=== PATIENT | female | born 1945 | race Caucasian/White ===

== ENCOUNTER → 2016-08-28 | Outpatient (CLI) | payer MEDICARE, BC ==
[2015-12-21 15:00] VITALS: BP 123/62
[~2016-08-28] MED LIST: ASCO1TAB2 PO; CALC-128 PO; FLUT12AE IH; GLUC-117 PO; MULT-650 PO; VIT1TABL32 PO
--- NOTE | 2016-08-28 16:57 | RAD ---
CT chest without IV contrast History: Follow-up nodule. Comparison: CT chest 02/25/2016. Technique: Helical CT of the chest was performed without intravenous contrast. Axial, sagittal, and coronal reconstructions were obtained. One or more of the following individualized dose reduction techniques were utilized for the study: Automated exposure control Adjustment of mA and/or kV according to patient's size Use of iterative reconstruction technique. Findings: Thyroid is symmetric. Trachea and mainstem bronchi appear patent. No mediastinal lymphadenopathy is seen. Thoracic aorta is without evidence of aneurysm. Mild calcified aortic atherosclerosis is noted. Heart and pericardium are unremarkable. Right lower lobe soft tissue pulmonary nodule measuring 7 mm (series 3 image 177) is unchanged. The lingula demonstrates mucus impaction of multiple bronchi. There is interval resolution of previously identified right upper lobe groundglass nodules. There is interval development of a few irregular groundglass nodules in the left upper lobe measuring up to 5 mm (series 3 images 120 through 137). Impression: 1. Waxing and waning course of groundglass nodules. A few previously identified groundglass nodules have resolved while there are new left upper lobe groundglass nodules. Recommend follow-up chest CT in 3 months. 2. Right lower lobe soft tissue pulmonary nodule measuring 7 mm unchanged.
== END | disposition home or self-care (01) ==
LOC: CT 13:48
PROVIDERS: ATTEND Internal Medicine Critical Care Medicine
DX: R91.1 Solitary pulmonary nodule (principal)
CPT/HCPCS: 71250

== ENCOUNTER → 2017-02-13 | Outpatient (CLI) | payer MEDICARE, BC ==
[2015-12-21 15:00] VITALS: BP 123/62
--- NOTE | 2017-02-13 15:01 | RAD ---
Indication follow-up pulmonary nodules. Axial images of the chest were obtained and are compared to an examination 08/28/2016. No IV contrast was administered. Imaging through the upper abdomen is unremarkable. Mild pectus deformity is noted. No significant hilar or mediastinal adenopathy is seen. Scattered areas of pleural-parenchymal scarring are seen appearing similar. Areas of bronchiectasis are noted also appearing similar. Nodule in the right lower lobe is unchanged. A few small nodules in the left upper lobe also appear stable. A new finding in the chest is not seen and no acute finding is apparent IMPRESSION: Stable chest. No acute finding seen. Nodule in the right lower lobe and smaller nodules in the left upper lobe appear stable PQRS Compliance Statement: One or more of the following individualized dose reduction techniques were utilized for this examination: 1. Automated exposure control 2. Adjustment of the mA and/or kV according to patient size 3. Use of iterative reconstruction technique
== END | disposition home or self-care (01) ==
LOC: CT 11:41
PROVIDERS: ATTEND Internal Medicine Critical Care Medicine
DX: R91.8 Other nonspecific abnormal finding of lung field (principal)
CPT/HCPCS: 71250

== ENCOUNTER 2017-02-15 13:03 | Emergency (ER) | payer MEDICARE, BC ==
[2017-02-15] MEDS ORDERED: IV NORMAL SALINE 1000ML BAG 1,000 ML IV SCH (13:44)
--- NOTE | 2017-02-15 13:56 | EKG ---
[facility] [address] [place] [address] Test Date: 2017-02-15 Test Time: 13:26:43 Pat Name: ANYI KUHN Department: Room: Gender: F Delivery Consultant: : 1945 Requested By: ZAINAB LE Order Number: [id number] Reading MD: Measurements Intervals [place] Rate: 68 P: 55 AZ: 100 QRS: 60 QRSD: 76 T: 51 QT: 360 QTc: 387 Interpretive Statements SINUS RHYTHM QRS(T) CONTOUR ABNORMALITY CONSIDER ANTEROSEPTAL MYOCARDIAL DAMAGE RI6.01 Unconfirmed report No previous ECG available for comparison
[2017-02-15 13:57] LABS: BILIRUBIN,URINE NEGATIVE (NEG); GLUCOSE,URINE NEGATIVE (NEG); NITRITE,URINE NEGATIVE (NEG); PROTEIN,URINE NEGATIVE (NEG-TRACE); UROBILINOGEN,URINE 0.2 mg/dL (0.2 mg/dL)
[2017-02-15 14:04] LABS: BACTERIA,URINE 0 /HPF (0-FEW); RBC,URINE 0 /HPF (0-2); SQUAMOUS EPITHELIAL CELL,UR FEW /LPF; WBC,URINE 0 /HPF (0-4)
[2017-02-15 14:08] LABS: BASO % 1 % (0-3); EOS % 2 % (0-3); HEMATOCRIT 40.6 % (36.0-47.0); HEMOGLOBIN 13.8 g/dL (12.0-15.5); LYMPH # 0.8 x10^3/uL (1.0-4.8); LYMPH % 13 % (24-48); MEAN CORPUSCULAR HEMOGLOBIN 29 pg (25-35); MEAN CORPUSCULAR HGB CONC 34 g/dL (31-37); MEAN CORPUSCULAR VOLUME 84 fL (79-100); MONO % 6 % (0-9); NEUT % 79 % (31-73); PLATELET COUNT 144 x10^3/uL (140-400); RED BLOOD COUNT 4.85 x10^6/uL (3.50-5.40); RED CELL DISTRIBUTION WIDTH 12.9 % (11.5-14.5); WHITE BLOOD COUNT 6.6 x10^3/uL (4.0-11.0)
[2017-02-15 14:18] LABS: CALCIUM 10.1 mg/dL (8.5-10.1); CREATININE 0.9 mg/dL (0.6-1.0); GFR 61.9; POTASSIUM 4.6 mmol/L (3.5-5.1)
[2017-02-15 14:24] LABS: TOTAL BILIRUBIN 0.5 mg/dL (0.2-1.0); TOTAL PROTEIN 7.9 g/dL (6.4-8.2)
--- NOTE | 2017-02-15 16:21 | PHYS DOC ---
Past Medical History Past Medical History: Asthma, COPD Past Surgical History: No Surgical History Alcohol Use: None Drug Use: None Adult General Chief Complaint Chief Complaint: WEAKNESS/GENERALIZED HPI HPI Patient is a 71 year old female brought to the ED by her daughter with the complaint of weakness. Patient states she recently had a tooth pulled and "it bled for 4 hours". She can get it to stop bleeding so she finally ended up going back to the [place] to impacted and put a stitch in and it did stop. The patient subsequently had some "spitting up" of blood, had some vomiting and coughing of blood. She spoke with Dr. Raymond who ordered a CT of her chest which was negative for pulmonary embolism. She has not had any further bleeding, but she just feels weak. She just doesn't feel like herself and feels somewhat weak. Patient is not on a blood thinner but she has been taking vitamin E because she thought it was good for her. Review of Systems Review of Systems Constitutional: Denies fever or chills [] HENT: She has sinus congestion and facial fullness Respiratory: Denies cough or shortness of breath [] Neurologic: Denies headache, focal weakness or sensory changes [] Current Medications Current Medications Current Medications Medications (Trade) Dose Ordered Sig/Jennie Start Time Stop Time Status Last Admin Dose Admin Sodium Chloride 1,000 ml @ 1,000 mls/hr Q1H 02/15/17 13:44 02/15/17 14:43 DC 02/15/17 14:07 1,000 MLS/HR Allergies Allergies Allergies Coded Allergies Type Severity Reaction Last Updated Verified clindamycin Allergy Intermediate 12/21/15 Yes sulfamethoxazole Allergy Intermediate 12/21/15 Yes trimethoprim Allergy Intermediate 12/21/15 Yes albuterol Allergy Mild 12/21/15 Yes Physical Exam Physical Exam Constitutional: Well developed, well nourished, no acute distress, non-toxic appearance. Alert, mentating normally, warm and dry. HENT: Normocephalic, atraumatic, bilateral external ears normal, oropharynx moist, no oral exudates, nose normal. The site of her dental extraction in the anterior mandible is healthy in appearance, no evidence of infection, no evidence of bleeding. Eyes: conjunctiva normal, no discharge. [] Neck: Normal range of motion, no stridor. [] Cardiovascular:Heart rate regular rhythm, no murmur [] Lungs & Thorax: Bilateral breath sounds clear to auscultation [] Abdomen: Bowel sounds normal, soft, no tenderness, no masses, no pulsatile masses. [] Skin: Warm, dry, no erythema, no rash. [] Extremities: No tenderness, no cyanosis, no clubbing, ROM intact, no edema. [] Neurologic: Alert and oriented X 3, normal motor function, no focal deficits noted. [] Current Patient Data Vital Signs Vital Signs Date Time Temp Pulse Resp B/P (MAP) Pulse Ox O2 Delivery O2 Flow Rate FiO2 02/15/17 16:35 61 18 99/50 (66) 96 Room Air 02/15/17 13:23 98.6 98.6 Lab Values Laboratory Tests Test 02/15/17 13:23 02/15/17 13:50 Urine Collection Type Unknown Urine Color Yellow Urine Clarity Clear Urine pH 6.0 Urine Specific Jefferson <=1.005 Urine Protein Negative mg/dL (NEG-TRACE) Urine Glucose (UA) Negative mg/dL (NEG) Urine Ketones (Stick) Negative mg/dL (NEG) Urine Blood Negative (NEG) Urine Nitrite Negative (NEG) Urine Bilirubin Negative (NEG) Urine Urobilinogen Dipstick 0.2 mg/dL (0.2 mg/dL) Urine Leukocyte Esterase Negative (NEG) Urine RBC 0 /HPF (0-2) Urine WBC 0 /HPF (0-4) Urine Squamous Epithelial Cells Few /LPF Urine Bacteria 0 /HPF (0-FEW) Urine Mucus Slight /LPF White Blood Count 6.6 x10^3/uL (4.0-11.0) Red Blood Count 4.85 x10^6/uL (3.50-5.40) Hemoglobin 13.8 g/dL (12.0-15.5) Hematocrit 40.6 % (36.0-47.0) Mean Corpuscular Volume 84 fL (79-100) Mean Corpuscular Hemoglobin 29 pg (25-35) Mean Corpuscular Hemoglobin Concent 34 g/dL (31-37) Red Cell Distribution Width 12.9 % (11.5-14.5) Platelet Count 144 x10^3/uL (140-400) Neutrophils (%) (Auto) 79 % (31-73) H Lymphocytes (%) (Auto) 13 % (24-48) L Monocytes (%) (Auto) 6 % (0-9) Eosinophils (%) (Auto) 2 % (0-3) Basophils (%) (Auto) 1 % (0-3) Neutrophils # (Auto) 5.2 x10^3uL (1.8-7.7) Lymphocytes # (Auto) 0.8 x10^3/uL (1.0-4.8) L Monocytes # (Auto) 0.4 x10^3/uL (0.0-1.1) Eosinophils # (Auto) 0.1 x10^3/uL (0.0-0.7) Basophils # (Auto) 0.0 x10^3/uL (0.0-0.2) Sodium Level 141 mmol/L (136-145) Potassium Level 4.6 mmol/L (3.5-5.1) Chloride Level 103 mmol/L (98-107) Carbon Dioxide Level 30 mmol/L (21-32) Anion Gap 8 (6-14) Blood Urea Nitrogen 19 mg/dL (7-20) Creatinine 0.9 mg/dL (0.6-1.0) Estimated GFR (Cockcroft-Gault) 61.9 BUN/Creatinine Ratio 21 (6-20) H Glucose Level 107 mg/dL (70-99) H Calcium Level 10.1 mg/dL (8.5-10.1) Total Bilirubin 0.5 mg/dL (0.2-1.0) Aspartate Amino Transferase (AST) 20 U/L (15-37) Alanine Aminotransferase (ALT) 28 U/L (14-59) Alkaline Phosphatase 87 U/L (46-116) Total Protein 7.9 g/dL (6.4-8.2) Albumin 4.0 g/dL (3.4-5.0) Albumin/Globulin Ratio 1.0 (1.0-1.7) Laboratory Tests 02/15/17 13:50 Laboratory Tests 02/15/17 13:50 EKG EKG [] Radiology/Procedures Radiology/Procedures [] Course & Med Decision Making Course & Med Decision Making Pertinent Labs and Imaging studies reviewed. (See chart for details) 71-year-old female with a complaint of generalized weakness after she had quite a bit of bleeding following a tooth extraction. I advised the patient we will check some labs and give her some IV fluids. She is agreeable to that plan. Labs are unremarkable.. She felt a little bit better after the liter of IV fluids. The patient feels like she might have a sinus infection. She has fullness in her sinuses and thinks she did get some blood in there when she was having the bleeding. She is already on a Z-Rivas. The patient feels comfortable with discharge. [] Dragon Disclaimer Dragon Disclaimer This electronic medical record was generated, in whole or in part, using a voice recognition dictation system. Departure Departure Impression: Primary Impression: Weakness Additional Impression: Sinusitis Disposition: HOME, SELF-CARE Condition: IMPROVED Referrals: LOLY WEST Jr, MD (PCP) Patient Instructions: Weakness, [id number] Additional Instructions: Be sure you are eating regular, healthy meals. Drink plenty of fluids. Follow- up with your dentist as planned. If not better in 3-5 days, see your primary care doctor. Problem Qualifiers ZAINAB LE MD Feb 15, 2017 16:21
[2017-02-15 16:35] VITALS: BP 99/50
== END 2017-02-15 16:38 | disposition home or self-care (01) ==
LOC: ER 13:03
DX: R53.1 Weakness (principal); J32.9 Chronic sinusitis, unspecified; K08.409 Partial loss of teeth, unspecified cause, unspecified class; J44.9 Chronic obstructive pulmonary disease, unspecified; Z88.1 Allergy status to other antibiotic agents; Z88.2 Allergy status to sulfonamides; Z88.8 Allergy status to other drugs, medicaments and biological substances
CPT/HCPCS: 36415; 80053; 81001; 85025; 93005; 96360; 99285; J7030

== ENCOUNTER → 2018-08-13 | Outpatient (CLI) | payer MEDICARE, BC ==
--- NOTE | 2018-08-13 12:47 | RAD ---
PQRS Compliance statement: One or more of the following individualized dose reduction techniques were utilized for this examination: 1. Automated exposure control. 2. Adjustment of the mA and/or kV according to patient size. 3. Use of iterative reconstruction technique. Indication:F/U LUNG NODULE PREV SENT TECHNIQUE: CT chest without IV contrast with multiplanar reformats. COMPARISON: 02/13/2017 FINDINGS: Heart is normal in size. No pericardial or pleural effusion. No axillary or mediastinal adenopathy. Evaluation of hilar lymphadenopathy is limited due to lack of IV contrast. Stable subsegmental atelectasis in the medial segment of the right middle lobe. Stable triangular opacity in the right lower lobe. Stable nodularity in the medial aspect of the right upper lobe. Stable 3 mm left lung apex nodule (series 3 image 49). Visualized noncontrast appearance of the liver, spleen, adrenals, kidneys and enteric tail within normal limits. No suspicious bony lesion. IMPRESSION: Stable bilateral lung findings dating back to January 2017. Findings likely suggests sequela of chronic or prior infection. Follow-up CT chest in 6 months recommended to document two-year stability. Electronically signed by: Jose Alberto Pickens DO (08/13/2018 12:44 PM) [facility]
== END | disposition home or self-care (01) ==
LOC: CT 09:17
PROVIDERS: ATTEND Internal Medicine Critical Care Medicine
DX: R91.1 Solitary pulmonary nodule (principal); J98.11 Atelectasis; R91.8 Other nonspecific abnormal finding of lung field
CPT/HCPCS: 71250